=== PATIENT | male | born 1950 | race Caucasian/White ===

== ENCOUNTER 2024-01-15 02:23 | Inpatient (IN) | payer BC, MEDICARE ==
[~2024-01-15] VITALS: Ht 182.9 cm; Wt 79.5 kg
[2024-01-15] VITALS (25 sets, daily range): BP systolic 117–153; BP diastolic 64–87; PULSE 78–93; RESP 11–18; TEMP 99.2; O2SAT 92–100
[2024-01-15 04:10] LABS: EOSINOPHILS # (AUTO) 0.1 X10'3 (0-0.9); EOSINOPHILS % (AUTO) 1.3 % (0-6); HEMOGLOBIN 16.1 g/dl (14.0-17.9); PLATELET COUNT 171 X10'3 (140-440)
[2024-01-15 04:12] LABS: BASOPHILS % (AUTO) 0.4 % (0-1); HEMATOCRIT 46.1 % (42.0-52.0); LYMPHOCYTES # (AUTO) 0.7 X10'3 (1.1-4.8); LYMPHOCYTES % (AUTO) 7.6 % (21-51); MEAN CORPUSCULAR VOLUME 88.5 FL (78-98); MEAN PLATELET VOLUME 8.4 FL (7.4-10.4); MONOCYTES # (AUTO) 1.1 X10'3 (0-0.9); MONOCYTES % (AUTO) 11.3 % (2-12); NEUTROPHILS # (AUTO) 7.8 X10'3 (1.8-7.7); NEUTROPHILS % (AUTO) 79.4 % (42-75); RED BLOOD COUNT 5.21 X10'6 (4.70-6.10); RED CELL DISTRIBUTION WIDTH 13.7 % (11.5-14.5); WHITE BLOOD COUNT 9.8 X10'3 (4.5-11.0)
[2024-01-15 04:19] LABS: APTT 22 SECONDS (22-32); PROTHROMBIN TIME 10.9 SECONDS (9.0-12.0)
[2024-01-15 04:25] LABS: ALBUMIN 3.6 G/DL (3.4-5.0); ANION GAP 10 (8-16); BLOOD UREA NITROGEN 16 MG/DL (7-18); BUN/CREATININE RATIO 13.4 (10.0-20.0); CHLORIDE 102 MMOL/L (99-107); CREATININE 1.19 MG/DL (0.60-1.10); GLUCOSE 120 MG/DL (70-104); POTASSIUM 3.9 MMOL/L (3.5-5.1); SODIUM 140 MMOL/L (135-145); TOTAL CARBON DIOXIDE 27.8 MMOL/L (24-32); eCRCL 59 ML/MIN; eGFR 60 ML/MIN
[2024-01-15] MEDS ORDERED: potassium Cl 40MEQ/1/2NS 520ml 520 ML IV PRN (04:50)
[2024-01-15] MEDS ORDERED: mag hydrox/Alum hydrox/simeth 30ml oral suspension PO PRN (04:50)
[2024-01-15] MEDS ORDERED: acetaminophen 325mg tablet PO PRN (04:50)
[2024-01-15] MEDS ORDERED: magnesium hydroxide 30ml (MOM) UD suspension PO PRN (04:50)
[2024-01-15] MEDS ORDERED: potassium Cl 20 mEq SR tablet PO PRN (04:50)
[2024-01-15 05:36] LABS: BILIRUBIN,URINE NEGATIVE (Neg); CLARITY,URINE CLEAR (Clear); COLOR,URINE YELLOW (Yellow); GLUCOSE, URINE NEGATIVE (Neg); KETONES,URINE 15 mg/dl (Neg); LEUKOCYTE ESTERASE ,URINE NEGATIVE (Neg); NITRITES, URINE NEGATIVE (Neg); OCCULT BLOOD,URINE NEGATIVE (Neg); PROTEIN,URINE NEGATIVE (Neg)
[2024-01-15] MEDS: normal saline 1000ml 1,000 ML IV SCH (05:36)
[2024-01-15 05:41] LABS: UA COLLECTION TYPE FOLEY CATH
[2024-01-15] MEDS: HYDROmorphone inj. 0.5 MG/0.5 ML DISP.SYRIN IV PRN (06:08)
[2024-01-15] MEDS: K and/or MAG REPLACEMENT MC SCH (08:00)
[2024-01-15] MEDS: clopidogrel 75mg tablet PO SCH (08:17)
[2024-01-15] MEDS: atorvastatin 20mg tablet PO SCH (08:18)
[2024-01-15] MEDS: carVEDilol 3.125mg tablet PO SCH (08:18)
[2024-01-15] MEDS: docusate sod 100mg capsule PO SCH (08:18)
[2024-01-15] MEDS: aspirin 81mg tab.chew PO SCH (08:19)
[2024-01-15 08:45] LABS: MAGNESIUM 1.8 MG/DL (1.5-2.4); THYROID STIMULATING HORMONE 1.61 ulU/ml (0.34-4.50)
[2024-01-15] MEDS ORDERED: CHOL125C7 (09:45)
[2024-01-15] MEDS ORDERED: CLOP75TA34 PO (09:45)
[2024-01-15] MEDS ORDERED: ROSU20TA73 PO (09:45)
[2024-01-15] MEDS ORDERED: CARV3.122 PO (09:45)
[2024-01-15] MEDS ORDERED: OMEG1CAP61 PO (09:46)
[2024-01-15] MEDS ORDERED: PRAS25CA PO (09:46)
[2024-01-15] MEDS ORDERED: MULT-1085 PO (09:47)
[2024-01-15] MEDS ORDERED: ZINC220T3 PO (09:48)
[2024-01-15] MEDS ORDERED: PERFLUTREN PROTEIN-A MICROSPHR (Optison) 0.22 MG/ML 3ML VIAL IV ONE (11:25)
[2024-01-15] MEDS: famotidine 10mg/ml inj IV ONE (13:27)
[2024-01-15] MEDS: metoclopramide 5 mg/ml inj IV ONE (13:28)
[2024-01-15] MEDS ORDERED: sevoflurane 250ml liquid IH ONE (13:46)
[2024-01-15] MEDS ORDERED: fentaNYL/PF 50MCG/1 ML 2ML syringe ONE (13:46)
[2024-01-15] MEDS ORDERED: ondansetron/PF 4mg/2ml inj ONE (13:58)
[2024-01-15] MEDS ORDERED: LIDOcaine 1%/PF 5ML 10 MG/ML VIAL ONE (13:58)
[2024-01-15] MEDS ORDERED: ceFAZolin 1000mg inj ONE ×2 (14:04)
[2024-01-15] MEDS ORDERED: propofol inj 20 ML IV ONE (14:12)
[2024-01-15] MEDS: meperidine/PF 25mg/ml syringe ONE ×2 (14:34→15:27)
[2024-01-15] MEDS ORDERED: HYDROmorphone/PF 0.2 MG/ML SYRINGE IV PRN ×2 (15:20)
[2024-01-15] MEDS ORDERED: ondansetron/PF 4mg/2ml inj IV PRN (15:20)
[2024-01-15] MEDS: meperidine/PF 25mg/ml syringe IV PRN ×2 (15:27→16:07)
[2024-01-15] MEDS: ringers solution, lacted 1,000 ML IV SCH (18:52)
[2024-01-15] MEDS: cefazolin 2gm/D5W 100mL 100 ML IV SCH (18:55)
[2024-01-15] MEDS: ondansetron/PF 4mg/2ml inj IV PRN (21:22)
[2024-01-16] MEDS: HYDROcodone/acetaminophen 5mg/325mg tablet PO PRN (01:50)
[2024-01-16 02:00] VITALS: BP 121/72; PULSE 80; RESP 15; TEMP 98.2; O2SAT 95
[2024-01-16 06:00] VITALS: BP 128/70; PULSE 81; RESP 13; TEMP 97.3; O2SAT 95
[2024-01-16 06:47] LABS: BASOPHILS # (AUTO) 0.1 X10'3 (0-0.2); BASOPHILS % (AUTO) 0.6 % (0-1); EOSINOPHILS # (AUTO) 0.4 X10'3 (0-0.9); EOSINOPHILS % (AUTO) 4.7 % (0-6); HEMATOCRIT 38.5 % (42.0-52.0); HEMOGLOBIN 13.4 g/dl (14.0-17.9); LYMPHOCYTES # (AUTO) 1.1 X10'3 (1.1-4.8); LYMPHOCYTES % (AUTO) 13.6 % (21-51); MEAN CORPUSCULAR HGB CONC 34.9 g/dL (33.0-36.5); MEAN CORPUSCULAR VOLUME 88.9 FL (78-98); MEAN PLATELET VOLUME 7.9 FL (7.4-10.4); MONOCYTES # (AUTO) 1.2 X10'3 (0-0.9); MONOCYTES % (AUTO) 14.8 % (2-12); NEUTROPHILS # (AUTO) 5.4 X10'3 (1.8-7.7); NEUTROPHILS % (AUTO) 66.3 % (42-75); PLATELET COUNT 139 X10'3 (140-440); RED BLOOD COUNT 4.33 X10'6 (4.70-6.10); RED CELL DISTRIBUTION WIDTH 13.9 % (11.5-14.5); WHITE BLOOD COUNT 8.1 X10'3 (4.5-11.0)
[2024-01-16 07:12] LABS: ALBUMIN 2.6 G/DL (3.4-5.0); ANION GAP 9 (8-16); BLOOD UREA NITROGEN 12 MG/DL (7-18); BUN/CREATININE RATIO 12.9 (10.0-20.0); CALCIUM 7.6 MG/DL (8.5-10.1); CHLORIDE 101 MMOL/L (99-107); CREATININE 0.93 MG/DL (0.60-1.10); GLUCOSE 103 MG/DL (70-104); MAGNESIUM 1.6 MG/DL (1.5-2.4); POTASSIUM 3.8 MMOL/L (3.5-5.1); SODIUM 136 MMOL/L (135-145); TOTAL CARBON DIOXIDE 25.7 MMOL/L (24-32); eCRCL 75 ML/MIN; eGFR 79 ML/MIN
[2024-01-16] MEDS ORDERED: HYDROmorphone inj. 0.5 MG/0.5 ML DISP.SYRIN IV PRN (07:35)
[2024-01-16] MEDS ORDERED: HYDROmorphone 1 mg/ml syringe IV PRN (07:35)
[2024-01-16] MEDS: HYDROcodone/acetaminophen 10/325mg tab PO ONE (09:12)
[2024-01-16] MEDS: aspirin 325mg tablet PO SCH (09:12)
[2024-01-16 10:00] VITALS: BP 116/66; PULSE 77; RESP 16; TEMP 98.5; O2SAT 92
[2024-01-16] MEDS ORDERED: metoprolol tartrate 1mg/ml inj IV PRN (12:10)
[2024-01-16] MEDS ORDERED: aminophylline 250mg/10ml inj. IV PRN (12:10)
[2024-01-16] MEDS ORDERED: nitroGLYCERIN 0.4mg SUBLingual tab SL PRN (12:10)
[2024-01-16] MEDS: potassium Cl 20 mEq SR tablet PO PRN (12:31)
[2024-01-16] MEDS: magnesium Cl slow-release 64mg tablet PO PRN (12:31)
[2024-01-16] MEDS: HYDROcodone/acetaminophen 10/325mg tab PO PRN (13:32)
[2024-01-16] MEDS ORDERED: iohexol 350MG/ML 100ml bottle IV ONE (13:52)
[2024-01-16 18:00] VITALS: BP 113/70; PULSE 66; RESP 16; TEMP 98; O2SAT 94
[2024-01-16 19:50] VITALS: RESP 16; O2SAT 94
[2024-01-16 22:00] VITALS: BP 132/75; PULSE 74; RESP 16; TEMP 99.7; O2SAT 94
[2024-01-16] MEDS: nicotine 7mg patch - 24hr TD SCH (22:15)
[2024-01-16 22:28] LABS: POTASSIUM 4.4 MMOL/L (3.5-5.1)
[2024-01-16] MEDS: magnesium 2GM in 50ml NS 50 ML IV PRN (22:28)
[2024-01-17] VITALS (12 sets, daily range): BP systolic 120–149; BP diastolic 50–93; PULSE 68–89; RESP 16–18; TEMP 97.4–98.1; O2SAT 90–97
[2024-01-17] MEDS: magnesium 4gm in 100ml NS 100 ML IV PRN (00:37)
[2024-01-17 06:59] LABS: BASOPHILS % (AUTO) 0.5 % (0-1); EOSINOPHILS # (AUTO) 0.4 X10'3 (0-0.9); EOSINOPHILS % (AUTO) 5.1 % (0-6); HEMATOCRIT 36.8 % (42.0-52.0); HEMOGLOBIN 12.8 g/dl (14.0-17.9); LYMPHOCYTES # (AUTO) 0.9 X10'3 (1.1-4.8); LYMPHOCYTES % (AUTO) 12.1 % (21-51); MEAN CORPUSCULAR HEMOGLOBIN 30.9 PG (27.0-31.0); MEAN CORPUSCULAR HGB CONC 34.8 g/dL (33.0-36.5); MEAN CORPUSCULAR VOLUME 88.8 FL (78-98); MEAN PLATELET VOLUME 7.8 FL (7.4-10.4); MONOCYTES # (AUTO) 0.9 X10'3 (0-0.9); MONOCYTES % (AUTO) 12.8 % (2-12); NEUTROPHILS # (AUTO) 5.1 X10'3 (1.8-7.7); NEUTROPHILS % (AUTO) 69.5 % (42-75); PLATELET COUNT 143 X10'3 (140-440); RED BLOOD COUNT 4.14 X10'6 (4.70-6.10); RED CELL DISTRIBUTION WIDTH 13.6 % (11.5-14.5); WHITE BLOOD COUNT 7.4 X10'3 (4.5-11.0)
[2024-01-17 07:35] LABS: ALBUMIN 2.6 G/DL (3.4-5.0); ANION GAP 4 (8-16); BLOOD UREA NITROGEN 9 MG/DL (7-18); BUN/CREATININE RATIO 12.3 (10.0-20.0); CALCIUM 7.4 MG/DL (8.5-10.1); CHLORIDE 102 MMOL/L (99-107); CREATININE 0.73 MG/DL (0.60-1.10); GLUCOSE 117 MG/DL (70-104); MAGNESIUM 2.4 MG/DL (1.5-2.4); PHOSPHORUS 2.3 MG/DL (2.3-4.5); POTASSIUM 4.1 MMOL/L (3.5-5.1); SODIUM 134 MMOL/L (135-145); TOTAL CARBON DIOXIDE 27.9 MMOL/L (24-32); eCRCL 96 ML/MIN; eGFR > 90 ML/MIN
[2024-01-17] MEDS: aspirin 81mg, enteric-coated 1 TAB TABLET.DR PO SCH (08:49)
[2024-01-17] MEDS: clopidogrel 75mg tablet PO SCH (08:49)
[2024-01-17] MEDS: regadenoson 0.4mg/5ml syringe IV PRN (11:32)
[2024-01-18 06:40] VITALS: BP 124/72; PULSE 65; RESP 16; TEMP 98.4; O2SAT 97
[2024-01-18 07:45] LABS: ALBUMIN 2.6 G/DL (3.4-5.0); ANION GAP 7 (8-16); BLOOD UREA NITROGEN 9 MG/DL (7-18); BUN/CREATININE RATIO 11.1 (10.0-20.0); CALCIUM 7.9 MG/DL (8.5-10.1); CHLORIDE 103 MMOL/L (99-107); CREATININE 0.81 MG/DL (0.60-1.10); GLUCOSE 100 MG/DL (70-104); MAGNESIUM 1.9 MG/DL (1.5-2.4); PHOSPHORUS 3.1 MG/DL (2.3-4.5); POTASSIUM 3.9 MMOL/L (3.5-5.1); SODIUM 137 MMOL/L (135-145); TOTAL CARBON DIOXIDE 26.9 MMOL/L (24-32); eCRCL 86 ML/MIN; eGFR > 90 ML/MIN
[2024-01-18 07:47] LABS: BASOPHILS % (AUTO) 0.7 % (0-1); EOSINOPHILS # (AUTO) 0.4 X10'3 (0-0.9); HEMATOCRIT 34.6 % (42.0-52.0); HEMOGLOBIN 12.4 g/dl (14.0-17.9); LYMPHOCYTES # (AUTO) 1.1 X10'3 (1.1-4.8); MEAN CORPUSCULAR HEMOGLOBIN 31.1 PG (27.0-31.0); MEAN CORPUSCULAR HGB CONC 35.7 g/dL (33.0-36.5); MEAN CORPUSCULAR VOLUME 87.1 FL (78-98); MEAN PLATELET VOLUME 7.6 FL (7.4-10.4); MONOCYTES # (AUTO) 0.7 X10'3 (0-0.9); MONOCYTES % (AUTO) 13.1 % (2-12); NEUTROPHILS # (AUTO) 3.4 X10'3 (1.8-7.7); NEUTROPHILS % (AUTO) 60.2 % (42-75); PLATELET COUNT 160 X10'3 (140-440); RED BLOOD COUNT 3.97 X10'6 (4.70-6.10); RED CELL DISTRIBUTION WIDTH 13.6 % (11.5-14.5); WHITE BLOOD COUNT 5.7 X10'3 (4.5-11.0)
[2024-01-18 10:00] VITALS: BP 127/85; PULSE 73; RESP 16; TEMP 97.3; O2SAT 97
== END 2024-01-18 17:55 | disposition swing bed (61) | DRG 480 ==
LOC: ER 02:24 → ED HOLD 04:55 → ORTHO 4S 16:55
PROVIDERS: ADMIT Internal Medicine Sleep Medicine; ATTEND Family Medicine
PROC: 0QH734Z Insertion of Internal Fixation Device into Left Upper Femur, Percutaneous Approach (ICD-10-PCS; principal; 2024-01-15 13:46)
PROC: B3251ZZ Computerized Tomography (CT Scan) of Bilateral Common Carotid Arteries using Low Osmolar Contrast (ICD-10-PCS; 2024-01-16)
PROC: B32G1ZZ Computerized Tomography (CT Scan) of Bilateral Vertebral Arteries using Low Osmolar Contrast (ICD-10-PCS; 2024-01-16)
PROC: B32R1ZZ Computerized Tomography (CT Scan) of Intracranial Arteries using Low Osmolar Contrast (ICD-10-PCS; 2024-01-16)
PROC: B3281ZZ Computerized Tomography (CT Scan) of Bilateral Internal Carotid Arteries using Low Osmolar Contrast (ICD-10-PCS; 2024-01-16)
PROC: 4A02XM4 Measurement of Cardiac Total Activity, External Approach (ICD-10-PCS; 2024-01-17)
PROC: 3E033HZ Introduction of Radioactive Substance into Peripheral Vein, Percutaneous Approach (ICD-10-PCS; 2024-01-17)
DX: S72.002A Fracture of unspecified part of neck of left femur, initial encounter for closed fracture (principal); N17.0 Acute kidney failure with tubular necrosis; E78.5 Hyperlipidemia, unspecified; I10 Essential (primary) hypertension; E03.9 Hypothyroidism, unspecified; I25.10 Atherosclerotic heart disease of native coronary artery without angina pectoris; I48.0 Paroxysmal atrial fibrillation; I65.23 Occlusion and stenosis of bilateral carotid arteries; I49.3 Ventricular premature depolarization; H49.11 Fourth [trochlear] nerve palsy, right eye; W01.0XXA Fall on same level from slipping, tripping and stumbling without subsequent striking against object, initial encounter; I49.5 Sick sinus syndrome; G47.33 Obstructive sleep apnea (adult) (pediatric); Z86.16 Personal history of COVID-19; Z95.5 Presence of coronary angioplasty implant and graft; Z63.4 Disappearance and death of family member; Z82.49 Family history of ischemic heart disease and other diseases of the circulatory system; Z87.891 Personal history of nicotine dependence; Z79.02 Long term (current) use of antithrombotics/antiplatelets; Z79.899 Other long term (current) drug therapy; Z71.6 Tobacco abuse counseling; Y93.89 Activity, other specified; Y92.89 Other specified places as the place of occurrence of the external cause; Y99.8 Other external cause status
CPT/HCPCS: 93306; 99291; 99292; Z7506; 36415; 70450; 70496; 70498; 71045; 73502; 73521; 76000; 78452; 80048; 81003; 83735; 84100; 84132; 84439; 84443; 84484; 85025; 85610; 85730; 86885; 86900; 86901; 93005; 93017; 97110; 97116; 97161; 97530; A4314; A4340; A4615; A4618; A5200; A6213; A6250; A9500; C1713; G0378; J0690; J1170; J2175; J2405; J2704; J2765; J2785; J3010; J3475; J3490; J7030; J7120; Q9967